=== PATIENT | male | born 1995 | race Two or more races ===

== ENCOUNTER 2020-03-01 03:57 | Emergency (ER) | payer SELFPAY ==
[~2020-03-01] VITALS: Ht 170.2 cm; Wt 86.2 kg
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
[2020-03-01] MEDS ORDERED: IBUPROFEN 600 MG TABLET PO ONE ×2 (04:30→04:45)
[2020-03-01] MEDS ORDERED: TDAP [DIPH/PERTUSSIS/TET] 0.5 ML VIAL IM ONE ×2 (04:30→04:45)
--- NOTE | 2020-03-01 04:49 | NUR ---
ASKED PT TO PROVIDE URINE, STATED HE WILL LATER.
[2020-03-01] MEDS ORDERED: CT SWABBABLE VALVE TRANS SET 1 EA INFUS.SET MC ONE (05:01)
[2020-03-01] MEDS ORDERED: IV NS 0.9% 250 ML IV ONE (05:01)
[2020-03-01] MEDS ORDERED: IOHEXOL-300 100 ML VIAL IV ONE (05:01)
[2020-03-01 05:05] LABS: BASOPHILS % (AUTO) 0.3 % (0.0-2.0); EOSINOPHILS % (AUTO) 1.3 % (0.0-6.0); HEMATOCRIT 44 % (39-51); HEMOGLOBIN 14.9 g/dL (13.5-17.5); LYMPHOCYTES % (AUTO) 30.1 % (20.0-44.0); MEAN CORPUSCULAR HGB CONC 34 g/dl (31.0-36.0); MEAN CORPUSCULAR VOLUME 85 fL (80-96); MONOCYTES # (AUTO) 0.7 /CMM (0.1-1.30); NEUTROPHILS # (AUTO) 3.8 /CMM (1.8-8.9); NEUTROPHILS % (AUTO) 58.3 % (43.0-81.0); PLATELET COUNT (AUTO) 197 /CMM (150-450); RED BLOOD CELL COUNT(AUTO) 5.12 MIL/uL (4.5-6.0); WHITE BLOOD COUNT (AUTO) 6.6 K/uL (4.3-11.0)
[2020-03-01 05:15] LABS: CALCIUM, SERUM 8.7 mg/dL (8.5-10.1); CARBON DIOXIDE 26 mmol/L (21-32); CHLORIDE 104 mmol/L (98-107); CREATININE 0.9 mg/dL (0.6-1.3); GLUCOSE 106 mg/dL (74-106); POTASSIUM 3.6 mmol/L (3.5-5.1); SODIUM SERUM 139 mmol/L (136-145); UREA NITROGEN, BLOOD 14 mg/dL (7-18)
[2020-03-01 05:21] LABS: ALANINE AMINOTRANSFERASE 43 U/L (12-78); ALCOHOL, BLOOD < 3 mg/dL (0-0); ALKALINE PHOSPHATASE 113 U/L (46-116); ASPARTATE AMINOTRANSFERASE 30 U/L (15-37); BILIRUBIN,DIRECT 0.1 mg/dL (0.0-0.2); BILIRUBIN,TOTAL 0.3 mg/dL (0.2-1.0); TOTAL PROTEIN, SERUM 7.2 g/dL (6.4-8.2)
--- NOTE | 2020-03-01 05:24 | NUR ---
PT STATED HE DOES NOT WANT CT PELVIS W.
--- NOTE | 2020-03-01 05:24 | NUR ---
Sary johnson in ED - 03/01/20 at 0525 by SABRINA PT STATED HE DOES NOT WANT CT PELVIS W.
--- NOTE | 2020-03-01 05:25 | NUR ---
PT DECLINED CT PELVIS W.
--- NOTE | 2020-03-01 05:26 | NUR ---
BROUGHT TO CT
--- NOTE | 2020-03-01 05:26 | NUR ---
PT TAKEN TO CT
--- NOTE | 2020-03-01 06:39 | NUR ---
PT APPEARS TO BE RESTING COMFORTABLY IN BED. WILL CONTINUE TO MONITOR THE PT.
[2020-03-01 07:15] VITALS: BP 124/78
== END 2020-03-01 07:16 | disposition home or self-care (01) ==
LOC: ER 04:00
DX: S81.811A Laceration without foreign body, right lower leg, initial encounter (principal); S13.4XXA Sprain of ligaments of cervical spine, initial encounter; V49.49XA Driver injured in collision with other motor vehicles in traffic accident, initial encounter; Y93.89 Activity, other specified; Y92.413 State road as the place of occurrence of the external cause; Y99.8 Other external cause status
CPT/HCPCS: 36415; 70450; 71045; 72125; 80048; 80076; 80307; 84484; 85025; 85730; 99285; A6403; J7050; Q9967; 90715; G0480